=== PATIENT | male | born 1990 | race American Indian/Alaskan Native ===

== ENCOUNTER 2021-03-10 02:33 | Emergency (ER) | payer SELFPAY ==
[2021-03-10 03:08] VITALS: BP 115/54
--- NOTE | 2021-03-10 03:44 | XRay Report ---
LEFT HAND 3 VIEWS INDICATION / CLINICAL INFORMATION: Injury COMPARISON: None available. FINDINGS: BONES / JOINT(S): No acute fracture or subluxation. No significant arthritis. SOFT TISSUES: No significant abnormality. ADDITIONAL FINDINGS: None. Signer Name: Jose Francisco Crum MD Signed: 03/10/2021 3:39 AM Workstation Name: [id number]
--- NOTE | 2021-03-10 03:52 | XRay Report ---
LEFT FOREARM 2 VIEWS INDICATION / CLINICAL INFORMATION: Injury COMPARISON: None available. FINDINGS: BONES / JOINT(S): No acute fracture or subluxation. No significant arthritis. SOFT TISSUES: No significant abnormality. ADDITIONAL FINDINGS: None. Signer Name: Jose Francisco Crum MD Signed: 03/10/2021 3:48 AM Workstation Name: [email or web address]
[2021-03-10] MEDS ORDERED: KETOROLAC 10 MG TAB PO ONE (04:51)
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
== END 2021-03-10 06:30 | disposition home or self-care (01) ==
LOC: ED 02:33
DX: S63.642A Sprain of metacarpophalangeal joint of left thumb, initial encounter (principal); Z79.899 Other long term (current) drug therapy; Z88.8 Allergy status to other drugs, medicaments and biological substances; Z91.018 Allergy to other foods; X58.XXXA Exposure to other specified factors, initial encounter; Y93.89 Activity, other specified; Y92.89 Other specified places as the place of occurrence of the external cause; Y99.8 Other external cause status

== ENCOUNTER 2021-11-23 05:19 | Emergency (ER) | payer OTHER ==
[2021-11-23 05:43] VITALS: BP 114/78
[2021-11-23] MEDS ORDERED: IBUPROFEN 800 MG TAB PO ONE (07:49)
[2021-11-23] MEDS ORDERED: methylPREDNISolone Sod Succinate 125 MG/2 ML INJ IM ONE (07:49)
[2021-11-23] MEDS ORDERED: CYCLOBENZAPRINE 10 MG TAB PO ONE (07:49)
[2021-11-23] MEDS: HYDROcodone/ACETAMINOPHEN 5-325 MG TAB PO ONE ×2 (08:01→08:06)
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
== END 2021-11-23 09:14 | disposition home or self-care (01) ==
LOC: ED 05:19
DX: S39.012A Strain of muscle, fascia and tendon of lower back, initial encounter (principal); B00.1 Herpesviral vesicular dermatitis; Y08.89XA Assault by other specified means, initial encounter; Y93.89 Activity, other specified; Y92.89 Other specified places as the place of occurrence of the external cause; Y99.8 Other external cause status
CPT/HCPCS: 96372; 99282; J2930